=== PATIENT | female | born 1945 | race Caucasian/White ===

== ENCOUNTER 2021-12-29 07:31 | Day surgery (SDC) | payer OTHER ==
[~2021-12-29] VITALS: Ht 152.4 cm; Wt 104.3 kg
[2021-12-29] MEDS: fentaNYL CITRATE/PF 100 MCG/2 ML AMP ONE ×2 (11:11→11:16)
[2021-12-29] MEDS: MIDAZOLAM HCL 5 MG/5 ML VIAL ONE ×3 (11:11→11:16)
[2021-12-29 14:06] VITALS: BP_SYST 125
== END 2021-12-29 12:15 | disposition home or self-care (01) ==
LOC: SMU 07:31 → SDS 07:31
PROVIDERS: ATTEND Internal Medicine
DX: Z12.11 Encounter for screening for malignant neoplasm of colon (principal); D12.0 Benign neoplasm of cecum; K57.30 Diverticulosis of large intestine without perforation or abscess without bleeding; K64.8 Other hemorrhoids; Z86.010 Personal history of colon polyps; K21.9 Gastro-esophageal reflux disease without esophagitis; I13.0 Hypertensive heart and chronic kidney disease with heart failure and stage 1 through stage 4 chronic kidney disease, or unspecified chronic kidney disease; I50.9 Heart failure, unspecified; N18.4 Chronic kidney disease, stage 4 (severe); Z79.899 Other long term (current) drug therapy; Z20.822 Contact with and (suspected) exposure to COVID-19
CPT/HCPCS: 36415 ×2; 45385; 87426; 88305; 99152; U0003; G0378; J2250; J3010; J7030; 45384